=== PATIENT | male | born 1995 | race Caucasian/White ===

== ENCOUNTER 2017-12-16 18:09 | Emergency (ER) | payer BC ==
[~2017-12-16] VITALS: Ht 185.4 cm; Wt 109.1 kg
[2017-12-16 18:12] VITALS: TEMP 37.2; Ht 185.4 cm; Wt 109.1 kg
[2017-12-16] MEDS ORDERED: BACITRACIN OINT 15 GM TUBE EXT ONE (18:45)
[2017-12-16] MEDS ORDERED: CEPHALEXIN 500MG HOME PACK 1 EA BTL PO ONE (18:45)
[2017-12-16] MEDS ORDERED: SEPTRA DS HOME PACK 1 EA VIAL PO ONE (18:45)
[2017-12-16] MEDS ORDERED: CEPH-571 PO (18:49)
[2017-12-16] MEDS ORDERED: SULF800T23 PO (18:49)
[2017-12-16] MEDS ORDERED: DULO60CA44 PO (18:52)
[2017-12-16 19:08] VITALS: BP 129/71; PULSE 106; O2SAT 96
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
== END 2017-12-16 19:08 | disposition home or self-care (01) ==
LOC: C.EDB 18:12 → C.EDD 19:08
DX: L03.116 Cellulitis of left lower limb (principal); T25.022A Burn of unspecified degree of left foot, initial encounter; T24.012A Burn of unspecified degree of left thigh, initial encounter; X11.8XXA Contact with other hot tap-water, initial encounter; Y92.9 Unspecified place or not applicable; F17.210 Nicotine dependence, cigarettes, uncomplicated